=== PATIENT | female | born 1970 | race Caucasian/White ===

== ENCOUNTER → 2022-11-08 | Outpatient (CLI) | payer OTHER ==
[2022-11-09 10:05] LABS: ALT 20 U/L; AST 19 U/L; LDL Cholesterol,Calculated 53.8 mg/dL
== END | disposition home or self-care (01) ==
LOC: LABWHC1 08:20
PROVIDERS: ATTEND Internal Medicine Cardiovascular Disease
DX: E78.2 Mixed hyperlipidemia (principal)
CPT/HCPCS: 36415; 80061; 84450; 84460

== ENCOUNTER → 2022-11-15 | Outpatient (CLI) | payer OTHER | END | disposition home or self-care (01) | LOC: LABWHC1 08:01 | PROVIDERS: ATTEND Internal Medicine | DX: E11.65 Type 2 diabetes mellitus with hyperglycemia (principal) | CPT/HCPCS: 36415; 82043; 82570; 82947; 84681 ==

== ENCOUNTER → 2022-12-06 | Outpatient (CLI) | payer OTHER ==
[2022-12-06 13:30] LABS: HCT 44.1 % (37.2-46.3); MCH 29.2 pg (27.0-32.0); MCHC 31.7 d/dL (32.0-37.0); MCV 91.9 FL (80.0-97.0); Mean Platelet Volume 9.7 FL (9.5-12.2); NRBC Per 100 WBC 0 X 10*3/uL (0.00-0.01); Platelet Count 297 X 10*3/uL (140-440); RDW 13.2 % (11.5-14.5); WBC 12.94 X 10*3/uL (4.50-10.00)
[2022-12-06 13:36] LABS: Blood Urea Nitrogen 21.4 mg/dL (9.0-27.0); Carbon Dioxide 27.6 mmol/L (21.6-31.8); Chloride 106 mmol/L (96-109); Potassium 4.7 mmol/L (3.5-5.5); Sodium 142 mmol/L (135-145)
== END | disposition home or self-care (01) ==
LOC: LABPAT 08:13
PROVIDERS: ATTEND Orthopaedic Surgery
DX: Z01.812 Encounter for preprocedural laboratory examination (principal); I25.10 Atherosclerotic heart disease of native coronary artery without angina pectoris; M17.11 Unilateral primary osteoarthritis, right knee; Z22.322 Carrier or suspected carrier of Methicillin resistant Staphylococcus aureus
CPT/HCPCS: 36415; 80051; 82565; 84520; 85027; 87070

== ENCOUNTER 2022-12-11 05:43 | Day surgery (SDC) | payer OTHER ==
[2022-12-11] MEDS ORDERED: ALPRAZolam 0.25 MG TAB PO PRN (05:59)
[2022-12-11] MEDS ORDERED: ALPRAZolam 0.5 MG TAB PO PRN (05:59)
[2022-12-11] MEDS ORDERED: SODIUM CHLORIDE 0.9% 1,000 ML in EMPTY BAG 1 BAG IV SCH (05:59)
[2022-12-11] MEDS ORDERED: NITROGLYCERIN SL TABS 0.4 MG TAB SUBLINGUAL PRN (05:59)
[2022-12-11 06:21] VITALS: RESP 18; TEMP 98.2
[2022-12-11 06:24] LABS: Glucose,Whole Blood 292 mg/dL (70-110)
[2022-12-11 06:26] LABS: Basophils # (A) 0.1 k/uL (0-0.2); Basophils % (A) 0 %; Eosinophils # (A) 0.3 k/uL (0-0.7); Eosinophils % (A) 2 %; HCT 45.4 % (34.0-46.0); HGB 14.6 gm/dL (11.4-16.0); Lymphocytes # (A) 3.3 k/uL (1.0-4.8); Lymphocytes % (A) 24 %; MCHC 32.1 g/dL (31.0-37.0); MCV 90.2 fL (80.0-100.0); Mean Platelet Volume 7.6; Monocytes # (A) 0.6 k/uL (0-1.0); Monocytes % (A) 4 %; Neutrophils # (A) 9.5 k/uL (1.3-7.7); Neutrophils % (A) 68 %; Platelet Count 280 k/uL (150-450); RBC 5.04 m/uL (3.80-5.40); RDW 13.5 % (11.5-15.5); WBC 13.9 k/uL (3.8-10.6)
[2022-12-11] MEDS ORDERED: ASPIRIN 325 MG TAB PO ONE (07:00)
[2022-12-11] MEDS ORDERED: HEPARIN SODIUM,PORCINE 10,000 UNIT in SODIUM CHLORIDE 0.9% 1,000 ML IRRIGATION PRN (07:00)
[2022-12-11] MEDS ORDERED: HEPARIN SODIUM,PORCINE 2,500 UNIT in SODIUM CHLORIDE 0.9% 250 ML IRRIGATION PRN (07:00)
[2022-12-11] MEDS ORDERED: ATORVASTATIN 80 MG TAB PO ONE (07:00)
[2022-12-11] MEDS ORDERED: HEPARIN SODIUM 1,000 UN/ML (10ML VL) ONE (07:25)
[2022-12-11] MEDS ORDERED: fentaNYL (PF) 50 MCG/ML 2 ML AMP ONE (07:25)
[2022-12-11] MEDS ORDERED: INSULIN ASPART (NovoLOG) 100 UNIT/ML VIAL SQ SCH (07:30)
[2022-12-11] MEDS ORDERED: fentaNYL (PF) 50 MCG/ML 2 ML AMP IV ONE (07:42)
[2022-12-11] MEDS: MIDAZOLAM 2 MG/2 ML VIAL IV ONE ×2 (07:42→07:49)
[2022-12-11] MEDS ORDERED: LIDOCAINE 1% INJ 10MG/ML (5 ML VIAL-PF) SQ ONE (07:44)
[2022-12-11] MEDS ORDERED: VERAPAMIL SYRINGE (5 MG/10 ML) INTRAARTER ONE (07:46)
[2022-12-11] MEDS ORDERED: HEPARIN SODIUM 1,000 UN/ML (10ML VL) IV ONE (07:49)
[2022-12-11] MEDS ORDERED: IOPAMIDOL-370 100ML BTL INJ ONE (08:12)
--- NOTE | 2022-12-11 08:36 | LTR ---
To CONSUELO Cooley. Dear Shaw[place], I performed cardiac catheterization on Swati Becerril. A detailed catheterization note is enclosed for your records. In brief, the cardiac catheterization reveals a patent stent within the LAD with an area of narrowing involving the distal stent and the [place] LAD. Plan at this stage is to treat her with optimal medical therapy and let her proceed with the surgery. MMMATILDEL / GRETELN: [id number] /
--- NOTE | 2022-12-11 08:44 | CC ---
CARDIAC CATHETERIZATION REPORT INDICATION: Abnormal stress test. HISTORY: This is a 52-year-old lady with history of known coronary artery disease status post prior angioplasty with placement of LAD, presented to me for preop cardiac evaluation prior to knee surgery and had a stress test that showed evidence of prior anterior wall myocardial infarction with areas of shala-infarct ischemia involving the anterolateral wall and had ischemic cardiomyopathy with ejection fraction of 40%. Due to this, she was advised to undergo cardiac catheterization for further evaluation. The patient had been explained of risks, benefits, and alternatives. She understood and accepted. DESCRIPTION OF PROCEDURE: After obtaining informed consent, left heart catheterization and coronary angiogram were performed via the right radial artery using standard Latha catheters. The patient tolerated the procedure well without any obvious immediate complications. The patient received sedation. Total sedation time was TR band was used for hemostasis. Right radial artery access was obtained using Seldinger technique. Catheters and wires were floated into the ascending aorta under fluoroscopic guidance. The patient received verapamil and heparin per protocol. FINDINGS: 1. Hemodynamics: Left ventricular end-diastolic pressure is 14-16 mm. There is no significant gradient across the aortic valve. 2. Left ventriculogram: Left ventriculogram was not performed. ANGIOGRAPHIC DATA: Right coronary artery: Right coronary artery is a large dominant vessel that shows a long segment of narrowing involving the PLV branch. It is 80% to 90% stenosed. Left main coronary artery is a normal-sized vessel and is free of stenosis. It divides into left anterior runs into left anterior descending coronary artery and circumflex coronary artery. Circumflex coronary artery gives off large-caliber OM branch. Both the circ and the OM branch appear free of significant stenosis. LAD was previously stented in the proximal portion with long segment of stent. Stent itself appears patent. Just at the junction of the stent and the [place] LAD, there is an area of narrowing which seems to be around 40% to 50%. CONCLUSION: 1. 90% stenosis involving a long segment of the PLV branch which appears chronic. 2. Patent stent within the LAD with an area of restenosis involving the distal stent and the [place] LAD just past the stent. PLAN: We will manage the patient with optimal medical therapy with beta blockers, aspirin statin, and add MANUEL inhibitors and let her go through surgery. I am going to have Dr. Joseph review the angiographic data. MMODL / IJN: [id number] /
[2022-12-11] MEDS ORDERED: RX INFO: IV CONTRAST WAS GIVEN 1 EACH MISC MISCELLANE PRN (10:26)
[2022-12-11] MEDS ORDERED: SODIUM CHLORIDE 0.9% 1,000 ML IV SCH (10:30)
[2022-12-11 11:17] VITALS: BP 138/85; PULSE 81
== END 2022-12-11 12:00 | disposition home or self-care (01) ==
LOC: CATHCVL 05:43
PROVIDERS: ATTEND Internal Medicine Cardiovascular Disease
DX: I25.10 Atherosclerotic heart disease of native coronary artery without angina pectoris (principal); I25.5 Ischemic cardiomyopathy; I25.2 Old myocardial infarction; E11.9 Type 2 diabetes mellitus without complications; I10 Essential (primary) hypertension; E78.5 Hyperlipidemia, unspecified; F17.210 Nicotine dependence, cigarettes, uncomplicated; Z79.02 Long term (current) use of antithrombotics/antiplatelets; Z79.82 Long term (current) use of aspirin; Z79.899 Other long term (current) drug therapy; Z79.4 Long term (current) use of insulin; Z79.84 Long term (current) use of oral hypoglycemic drugs; Z79.85 Long-term (current) use of injectable non-insulin antidiabetic drugs
CPT/HCPCS: 93458; 85025; C1769; C1894; J2250; J2001; J3010; J1644; Q9967

== ENCOUNTER 2023-01-20 10:37 | Observation (INO) | payer OTHER ==
[2023-01-12 11:43] VITALS: BMI 29.7
--- NOTE | 2023-01-19 08:29 | P.HPOR ---
History of Present Illness H&P Date: 01/19/23 Chief Complaint: Right knee pain The patient is a 52-year-old female who presents with progressive right knee pain secondary to osteoarthrosis despite conservative measures including medications along with injections. She has a history of a knee arthroscopy. She has daily pain that limits her normal function and activities. Review of Systems As per HPI Past Medical History Past Medical History: Coronary Artery Disease (CAD), Diabetes Mellitus, Hyperlipidemia, Hypertension, Myocardial Infarction (IN), Osteoarthritis (OA) Additional Past Medical History / Comment(s): RLS Last Myocardial Infarction Date:: 2018 History of Any Multi-Drug Resistant Organisms: None Reported Past Surgical History: Heart Catheterization, Heart Catheterization With Stent, Orthopedic Surgery, Tonsillectomy, Tubal Ligation Additional Past Surgical History / Comment(s): RT KNEE SX, LEEP, D & C Past Anesthesia/Blood Transfusion Reactions: Previous Problems w/ Anesthesia Additional Past Anesthesia/Blood Transfusion Reaction / Comment(s): COMES OUT OF ANESTHESIA SLOWLY Date of Last Stent Placement:: 2017 Smoking Status: Current every day smoker - Past Family History Mother Family Medical History: No Reported History Medications and Allergies Home Medications Medication Instructions Recorded Confirmed Type Aspirin EC [Ecotrin Low Dose] 81 mg PO DAILY 12/04/22 01/12/23 History Atorvastatin Calcium [Lipitor] 80 mg PO HS 12/04/22 01/12/23 History Clopidogrel [Plavix] 75 mg PO DAILY 12/04/22 01/12/23 History Dulaglutide [Trulicity] 4.5 mg SQ SA 12/04/22 01/12/23 History Empagliflozin [Jardiance] 25 mg PO DAILY 12/04/22 01/12/23 History Escitalopram Oxalate [Lexapro] 20 mg PO DAILY 12/04/22 01/12/23 History Insulin Aspart Prot/Insuln Asp 18 units SQ AC-TID 12/04/22 01/12/23 History [Novolog MIX 70-30 Flexpen] Insulin Glargine,Hum.rec.anlog 20 unit SQ HS 12/04/22 01/12/23 History [Lantus Solostar Pen] Metoprolol Tartrate [Lopressor] 75 mg PO BID 12/04/22 01/12/23 History Pioglitazone HCl 30 mg PO DAILY 12/04/22 01/12/23 History hydroCHLOROthiazide 12.5 mg PO DAILY 12/04/22 01/12/23 History metFORMIN HCL 1,000 mg PO BID 12/04/22 01/12/23 History rOPINIRole HCL [Requip] 3 mg PO HS 12/04/22 01/12/23 History Losartan [Cozaar] 25 mg PO DAILY #90 tab 12/11/22 01/12/23 Rx Multivit/Folic Acid/Vit K1 1 each PO DAILY 01/12/23 01/12/23 History [One-A-Day Women's 50 Plus Tab] Pregabalin 100 mg PO BID 01/12/23 01/12/23 History traMADol HCL 50 mg PO Q6H PRN 01/12/23 01/12/23 History Allergies Allergy/AdvReac Type Severity Reaction Status Date / Time adhesive Allergy redness on Verified 01/12/23 11:21 skin, took skin off Physical Examination - Knee right Appearance: effusion Effusion grade: grade 3 Valgus alignment in stance: 5 degrees Tenderness with palpation: anterior, lateral Pain: throughout ROM Gait: limping ROM: extension: -15 degrees ROM: flexion: 120 degrees Crepitus with motion: Yes Strength: extension: 5/5 Strength: flexion: 5/5 Meniscal tests: lateral meniscal tests: positive, lateral joint line pain: posit ryan Results The patient is a well-developed well-nourished female, approximately 6 foot 1, 220 pounds of endomorphic habitus. HEENT exam is nonfocal, neck is supple. She has painless passive motion of the right hip. Straight leg raise is negative. She's tender about the lateral joint line of the right knee. She has valgus alignment. Collaterals are stable, Maria Del Rosario was negative, Ivan's is equivocal. Her distal neurovascular appears intact in the right lower extremity. - Diagnostic results Knee x-ray: image reviewed (3 views of the right knee obtained the office show severe lateral and patellofemoral compartment joint space narrowing.) Assessment and Plan Assessment: Right knee severe lateral and patellofemoral compartment osteoarthrosis History of heart disease on Plavix Plan: I talked to the patient length regarding her condition along with treatment options. At this point she is quite symptomatic because of her right knee osteoarthrosis despite previous conservative measures. After thorough discussion she opted to proceed with surgery. We'll plan to proceed with right total knee arthroplasty. We will reinstitute her anticoagulation postoperatively. Risks and benefits were discussed at length in layman's terms.
[~2023-01-20 10:37] MED LIST: ACETAMINOPHEN TAB 500 MG TAB PO PRN; MELOXICAM 7.5 MG TAB PO PRN; TRANEXAMIC 1,000 MG/100ML-NACL 1,000 MG in SALINE 1 100ML.BAG IVPB PRN
[2023-01-20] MEDS ORDERED: MIDAZOLAM 2 MG/2 ML VIAL IV PRN (10:57)
[2023-01-20] MEDS ORDERED: ONDANSETRON 4 MG/2 ML VIAL IVP ONE (10:57)
[2023-01-20] MEDS ORDERED: LACTATED RINGERS 1,000 ML IV SCH (10:57)
[2023-01-20] MEDS ORDERED: HYDROmorphone 0.5 MG/0.5 ML SYRINGE IVP PRN ×2 (10:57→15:01)
[2023-01-20] MEDS ORDERED: DEXAMETHASONE SOD PHOSPHATE 4 MG/ML 1 ML VIAL IV ONE (10:57)
[2023-01-20] MEDS ORDERED: LIDOCAINE 1% (10MG/ML) FOR IV START INTRADERMA PRN (10:57)
[2023-01-20 11:35] LABS: Glucose,Whole Blood 125 mg/dL (70-110)
[2023-01-20] MEDS ORDERED: fentaNYL (PF) 50 MCG/ML 2 ML AMP IVP ONE (12:01)
[2023-01-20] MEDS ORDERED: MIDAZOLAM 2 MG/2 ML VIAL ONE (13:12)
[2023-01-20] MEDS ORDERED: PROPOFOL 10 MG/ML 20 ML VIAL IV ONE (13:12)
[2023-01-20] MEDS ORDERED: fentaNYL (PF) 50 MCG/ML 2 ML AMP ONE (13:12)
[2023-01-20] MEDS ORDERED: ROPIVACAINE 5 MG/ML 30 ML VIAL ONE (13:12)
[2023-01-20] MEDS ORDERED: SODIUM CHLORIDE 0.9% (PF) 10 ML VIAL ONE (13:12)
[2023-01-20] MEDS ORDERED: TRANEXAMIC 1,000 MG/100ML-NACL PREMIX BAG ONE (13:12)
--- NOTE | 2023-01-20 13:17 | P.ANPRN ---
Procedure Note - Anesthesia - Nerve Block Performed Right Adductor Canal Time Out Performed: Yes Date of Procedure: 01/20/23 Procedure Start Time: 12:01 Procedure Stop Time: 12:09 Location of Patient: PreOp Indication: Acute Post-Operative Pain, Requested by Surgeon (Dr Argueta) Sedation Type: Sedate with meaningful contact maintained Preparation: Sterile Prep, Sterile Dressing Position: Supine Catheter: Indwelling Needle Types: Pajunk Needle Gauge: 21 Ultrasound used to visualize needle placement: Yes Ultrasound used to observe medication spread: Yes Injectate: 0.5% Ropivacaine (see comment for volume) (20cc) Blood Aspirated: No Pain Paresthesia on Injection Noted: No Resistance on Injection: Normal Image Stored and Saved: Yes Events: Uneventful and Well Tolerated
--- NOTE | 2023-01-20 13:19 | P.ANPRN ---
Procedure Note - Anesthesia - Nerve Block Performed Right iPack Time Out Performed: Yes Date of Procedure: 01/20/23 Procedure Start Time: 12:10 Procedure Stop Time: 12:15 Location of Patient: PreOp Indication: Acute Post-Operative Pain, Requested by Surgeon (DR Argueta) Sedation Type: Sedate with meaningful contact maintained Preparation: Sterile Prep Position: Supine Catheter: None Needle Types: Pajunk Needle Gauge: 21 Ultrasound used to visualize needle placement: Yes Ultrasound used to observe medication spread: Yes Injectate: 0.5% Ropivacaine (see comment for volume) (15cc +5cc PF Normal saline) Blood Aspirated: No Pain Paresthesia on Injection Noted: No Resistance on Injection: Normal Image Stored and Saved: Yes Events: Uneventful and Well Tolerated
[2023-01-20] MEDS ORDERED: HYDROcodone/APAP 5-325MG 1 EACH TAB PO PRN (15:01)
[2023-01-20] MEDS ORDERED: HYDROmorphone 1 MG/ML 1 ML SYRINGE IVP PRN (15:01)
[2023-01-20] MEDS ORDERED: MAGNESIUM HYDROXIDE 2,400 MG/30 ML CUP PO PRN (15:01)
[2023-01-20] MEDS ORDERED: NALOXONE 0.4 MG/ML 1 ML VIAL IV PRN (15:01)
[2023-01-20] MEDS ORDERED: LACTATED RINGERS 1,000 ML IV ONE (15:08)
--- NOTE | 2023-01-20 15:14 | P.OP ---
Date of Procedure: 01/20/23 Preoperative Diagnosis: Right knee severe lateral and patellofemoral compartment osteoarthrosis Postoperative Diagnosis: Same Procedure(s) Performed: Right total knee arthroplastycementedposterior stabilized Implants: Depuy Attune size 6 cemented femoral component, size 5 cemented tibial component, 9 mm articular surface, 32 mm cemented patellar component. This is a posterior stabilized implant. Anesthesia: regional, spinal Surgeon: Velasquez Argueta Ingredient Mixer #1: Anton Vidal Estimated Blood Loss (ml): 50 Pathology: other (bone fragments) Condition: stable Disposition: PACU Indications for Procedure: The patient's a 52-year-old female presents with progressive right knee pain secondary to osteoarthrosis despite conservative measures. A discussion of the risks and benefits operative intervention versus continued conservative measures was made with the patient. She opted to proceed. Specific risks of surgery to include infection, neurovascular injury, development of blood clots, fracture, possible component loosening/failure and possible need for subsequent procedures was discussed. Informed consent was obtained. Operative Findings: As below Description of Procedure: The patient was brought to the operating room, and after induction of spinal anesthesia the right lower extremity was prepped and draped in a normal fashion. The tourniquet was inflated to 270 mm marker. A longitudinal incision extending 3 finger breaths above the superior pole of patella extending to the medial aspect the tibial tubercle was then made. The skin and subcutaneous tissues were divided sharply. Electrocautery was used for hemostasis. A medial parapatellar arthrotomy was performed. The medial soft tissues to include the superficial and deep portions of the medial collateral ligament were elevated subperiosteally. The lateral collateral ligament and popliteus off the lateral femoral epicondyle with electrocautery to help with balancing. The patella was everted. A portion of the retropatellar fat pad was excised sharply. The anterior cruciate ligament was sacrificed. Blunt retractors were placed. A starting hole was made in the distal femur 1 cm anterior to the posterior cruciate ligament origin. An intramedullary femoral guide was then inserted planning on 5 valgus distal cut with 9 mm distal resection. The cutting block was pinned in place. The distal cut was then made. The posterior referencing sizing guide was utilized. I felt size 6 was most appropriate. 3 of external rotation was built into the system and verified off the trans-epicondylar axis and the posterior condyles. The cutting block was pinned in place. The anterior, posterior, and chamfer cuts then made. Bone fragments were removed. The intercondylar guide was placed and the notch cut was made with a sagittal saw. The bone block was removed in one fragment. The trial component was then placed. There is good anterior to posterior and medial to lateral fit. The distal peg holes were drilled. The trial component was removed. Attention was then paid towards preparing the proximal tibia. An extra medullary guide was utilized in line with the tibial shaft and second metatarsal distally. I planned on 2 mm resection from the lateral compartment. The cutting block was pinned in place. The proximal tibial cut was then made. The bone was removed in one fragment. The remnants of the medial and lateral menisci were excised at the capsular junction with electrocautery. The tibia sized most appropriately at size 5. The trial femoral and tibial components were placed along with a 9 mm articular surface. I was able to obtain full flexion and extension with internal and external rotation. After several flexion and extension cycles, the tibial rotation was marked with electrocautery line with the medial one third of the tibial tubercle. Attention was then paid towards preparing the patella. A patella reamer was utilized taking stem to 14 mm of bone stock. A good flush cut was made. The patella sized most appropriately 32 mm. The peg holes were drilled. The trial components placed. I had good patellofemoral tracking with no hands technique. The trial components were then removed. The tibia was prepared in the appropriate rotation with appropriate drill and keel punch. The posterior osteophytes were removed with a curved osteotome. The flexion and extension gaps were checked and felt to be symmetric at 9 mm. A trial components were then removed. The bony surfaces were prepared with pulsatile lavage and dried. The tibial component was then cemented place was fully seated. Excess cement was removed. The femoral component cemented place and was fully seated. Excess cement was removed. The trial 9 mm articular surface was placed and the knee was put in full extension. The patella component was cemented place. After the cement had sufficiently hardened, the knee was again taken through a range of motion. Again I was able to obtain full flexion and extension with varus and valgus stress. The trial 9 mm articular surface was removed and the final one inserted. This was fully seated. Care was taken to avoid any soft tissue interposition. Pulsatile lavage was again utilized. The medial parapatellar arthrotomy was closed with #2 Ethibond suture. The tourniquet was deflated with approximately 60 minutes total tourniquet time. Final hemostasis was obtained with the cautery. There was minimal bleeding therefore a deep drain was not placed. The subcutaneous tissues were reapproximated with interrupted 2-0 Vicryl sutures. The skin was reapproximated with 3-0 subcuticular strata fix suture. Skin tape and adhesive was applied. A sterile dressing was applied. The patient was awoken from sedation and transferred to recovery room in good condition. Blood loss was estimated at 50 mL. No complications were incurred. Sponge and needle counts were correct at the end of the case. Anton FAUSTIN assisted during the major components of this case to include exposure, bone resection, implantation, and closure.
[2023-01-20] MEDS ORDERED: ROPIVACAINE 1,100 MG, SODIUM CHLORIDE 0.9% 500 ML 330 ML, EMPTY PAIN BALL 1 EACH MISCELLANE PRN ×2 (15:19)
[2023-01-20 15:34] LABS: Glucose,Whole Blood 169 mg/dL (70-110)
--- NOTE | 2023-01-20 15:48 | XR ---
EXAMINATION TYPE: XR knee limited RT DATE OF EXAM: 01/20/2023 3:33 PM INDICATION: Patient age:Female; 52 years old; Reason for study: Evaluation for Postop abnormality and alignment; H. COMPARISON: Right knee radiograph 10/01/2022 TECHNIQUE: The Right knee(s) was examined in AP and crosstable lateral projections. FINDINGS: Postsurgical changes from total right knee arthroplasty with distal femoral and proximal tibial components. Hardware appears intact with appropriate alignment. There is associated soft tissu e gas and edema. No acute fracture or dislocation. IMPRESSION: Postsurgical changes from right total knee arthroplasty. Hardware appears intact with appropriate ali gnment.
[2023-01-20] MEDS: PREGABALIN 100 MG CAP PO SCH (20:15)
[2023-01-20 20:59] LABS: Glucose,Whole Blood 346 mg/dL (70-110)
[2023-01-20] MEDS ORDERED: SENNOSIDES-DOCUSATE SODIUM 1 EACH TAB PO SCH (21:00)
[2023-01-20] MEDS: NICOTINE 14MG/24HR PATCH TRANSDERM SCH (21:04)
[2023-01-20] MEDS ORDERED: INSULIN DETEMIR (LEVEMIR) 100 UNIT/ML SYR SQ SCH (22:15)
[2023-01-20] MEDS: INSULIN ASPART (NovoLOG) 100 UNIT/ML VIAL SQ SCH (22:51)
[2023-01-21] MEDS: HYDROcodone/APAP 7.5-325MG 1 EACH TAB PO PRN ×2 (01:34→08:36)
[2023-01-21 01:46] VITALS: PULSE 85; TEMP 98.8
[2023-01-21 06:15] LABS: Glucose,Whole Blood 88 mg/dL (70-110)
[2023-01-21] MEDS: INSULIN ASPART (NovoLOG) 100 UNIT/ML VIAL SQ SCH ×2 (06:31→12:03)
[2023-01-21] MEDS ORDERED: INSULN ASP PRT/INSULIN ASPART 100 UNIT/ML 10 ML VIAL SQ SCH (07:30)
[2023-01-21] MEDS ORDERED: INSULIN ASPART (NovoLOG) 100 UNIT/ML VIAL SQ SCH (07:30)
[2023-01-21 07:41] LABS: Basophils # (A) 0.1 k/uL (0-0.2); Basophils % (A) 1 %; Eosinophils # (A) 0.1 k/uL (0-0.7); Eosinophils % (A) 1 %; HCT 42.1 % (34.0-46.0); HGB 13.6 gm/dL (11.4-16.0); Lymphocytes # (A) 2.7 k/uL (1.0-4.8); Lymphocytes % (A) 23 %; MCHC 32.3 g/dL (31.0-37.0); MCV 92.8 fL (80.0-100.0); Mean Platelet Volume 7.9; Monocytes # (A) 0.9 k/uL (0-1.0); Monocytes % (A) 8 %; Neutrophils # (A) 7.7 k/uL (1.3-7.7); Neutrophils % (A) 66 %; Platelet Count 212 k/uL (150-450); RBC 4.54 m/uL (3.80-5.40); RDW 13.3 % (11.5-15.5); WBC 11.7 k/uL (3.8-10.6)
[2023-01-21 07:54] VITALS: BP 146/80; RESP 19
[2023-01-21] MEDS: NICOTINE 14MG/24HR PATCH TRANSDERM SCH (08:26)
[2023-01-21] MEDS: PREGABALIN 100 MG CAP PO SCH (08:26)
[2023-01-21] MEDS ORDERED: CLOPIDOGREL 75 MG TAB PO SCH (09:00)
--- NOTE | 2023-01-21 10:42 | P.DS ---
Providers Date of admission: 01/20/23 17:25 Expected date of discharge: 01/21/23 Attending physician: Velasquez Argueta Consults: 01/20/23 15:01 Consult Physician Routine Consulting Provider: Tee Melgar Consult Reason/Comments: medical management status post right total knee arthroplasty Do you want consulting provider notified?: Yes Primary care physician: Levon Lux [facility] Course: Date of admission: 01/20/2023 Date of discharge: 01/21/2023 Admission diagnosis: Right knee osteoarthritis Discharge diagnosis: Same Attending physician: Dr. Argueta Surgical procedures: Right total knee arthroplasty Brief history: Patient is a is 52-year-old female with a history of progressive primary right knee osteoarthritis. At this point patient has failed conservative treatment measures and has opted to proceed with a elective right total knee arthroplasty. Hospital course: Details of patient's surgery can be found in operative report. Patient tolerated the procedure well and was subsequently transported to orthopedic floor. Patient's orthopeidc and medical care was provided daily. Patient had daily laboratory tests performed for evaluation of overall blood counts. Patient had daily physical therapy to include strengthening range of motion as well as education with walker ambulation. Patient was treated with Plavix for their postoperative DVT prophylaxis during their inpatient stay. Patient was noted to have a relatively uneventful postoperative course. Patient reported satisfactory pain control with oral pain medications by postoperative day 1. Patient showed satisfactory progress with physical therapy. Patient moved steadily through the program and had no difficulty meeting the goals by postoperative day 1. Given patient's otherwise satisfactory course and having met physical therapy goals, plan is to discharge patient home with health services on postoperative day 1. Discharge condition/disposition: Patient will be discharged home with health services in stable condition. Discharge medications: Instructions are given on resumption of patient's normal daily medications per primary care recommendation, in addition patient will be prescribed Marceline; senna. Discharge instructions: 1. Wound care and infection precautions, keep incision dry and covered while showering, no lotions, creams, moisturizers. No soaking, tubs, pools, hottubs. Do not scrub over the incision. 2. Weight-bear as tolerated with walker / cane until follow-up. 3. Ice and elevate when necessary. Do not exceed 20 minutes per hour with ice pack. 4. Utilize compression sleeve until seen at first follow up appointment. 5. Visiting nursing care. 6. Home physical therapy including home CPM. 7. Pain meds and anticoagulants per prescription. 8. Pain medication has potential to cause constipation. Increase oral fluid and fiber intake. Contact primary care provider if you have not had a bowel movement within 48 hours after discharge 9. No anti-inflammatory medication until discussed at first post operative visit, this including Motrin, Aleve, Mobic, Diclofenac. 10. Follow up in office at 2 weeks postop with Danilo Davenport PA-C / Anton Vidal PA-C 11. Follow up with your primary care doctor 7-10 days after discharge. 12. Contact [facility] with any questions, . Assessment: Right knee osteoarthritis Procedures: Right total knee arthroplasty Patient Condition at Discharge: Good Plan - Discharge Summary Discharge Rx Participant: Yes New Discharge Prescriptions: No Action Clopidogrel [Plavix] 75 mg PO DAILY Aspirin EC [Ecotrin Low Dose] 81 mg PO DAILY Metoprolol Tartrate [Lopressor] 75 mg PO BID Dulaglutide [Trulicity] 4.5 mg SQ SA hydroCHLOROthiazide 12.5 mg PO DAILY Losartan [Cozaar] 25 mg PO DAILY #90 tab Escitalopram Oxalate [Lexapro] 20 mg PO DAILY Empagliflozin [Jardiance] 25 mg PO DAILY Pioglitazone HCl 30 mg PO DAILY metFORMIN HCL 1,000 mg PO BID rOPINIRole HCL [Requip] 3 mg PO HS Insulin Glargine,Hum.rec.anlog [Lantus Solostar Pen] 20 unit SQ HS Insulin Aspart Prot/Insuln Asp [Novolog MIX 70-30 Flexpen] 18 units SQ AC-TID Atorvastatin Calcium [Lipitor] 80 mg PO HS traMADol HCL 50 mg PO Q6H PRN PRN Reason: Pain Pregabalin 100 mg PO BID Multivit/Folic Acid/Vit K1 [One-A-Day Women's 50 Plus Tab] 1 each PO DAILY Discharge Medication List Aspirin EC [Ecotrin Low Dose] 81 mg PO DAILY 12/04/22 [History] Atorvastatin Calcium [Lipitor] 80 mg PO HS 12/04/22 [History] Clopidogrel [Plavix] 75 mg PO DAILY 12/04/22 [History] Dulaglutide [Trulicity] 4.5 mg SQ SA 12/04/22 [History] Empagliflozin [Jardiance] 25 mg PO DAILY 12/04/22 [History] Escitalopram Oxalate [Lexapro] 20 mg PO DAILY 12/04/22 [History] Insulin Aspart Prot/Insuln Asp [Novolog MIX 70-30 Flexpen] 18 units SQ AC-TID 12/04/22 [History] Insulin Glargine,Hum.rec.anlog [Lantus Solostar Pen] 20 unit SQ HS 12/04/22 [History] Metoprolol Tartrate [Lopressor] 75 mg PO BID 12/04/22 [History] Pioglitazone HCl 30 mg PO DAILY 12/04/22 [History] hydroCHLOROthiazide 12.5 mg PO DAILY 12/04/22 [History] metFORMIN HCL 1,000 mg PO BID 12/04/22 [History] rOPINIRole HCL [Requip] 3 mg PO HS 12/04/22 [History] Losartan [Cozaar] 25 mg PO DAILY #90 tab 12/11/22 [Rx] Multivit/Folic Acid/Vit K1 [One-A-Day Women's 50 Plus Tab] 1 each PO DAILY 01/12/23 [History] Pregabalin 100 mg PO BID 01/12/23 [History] traMADol HCL 50 mg PO Q6H PRN 01/12/23 [History] Follow up Appointment(s)/Referral(s): Anton Vidal, LIAT [PHYSICIAN CANDY PACKER] - 2 Weeks Patient Instructions/Handouts: *Surgery [facility] - On-Q Pain Pump Discharge Instructions, Knee Replacement (DC) Activity/Diet/Wound Care/Special Instructions: Orthopedic Discharge Instructions: 1. Wound care and infection precautions, keep incision dry and covered while showering, no lotions, creams, moisturizers. No soaking, pools, hot tubs. Do not scrub over incision. 2. Weight-bear as tolerated with walker / cane until follow-up. 3. Ice and elevate when necessary. Do not exceed 20 minutes per hour with ice pack. 4. Utilize compression sleeve until seen at first follow up appointment. 5. Pain meds and anticoagulants per prescription. 6. Pain medication has potential to cause constipation. Increase oral fluid and fiber intake. Contact primary care provider if you have not had a bowel movement within 48 hours after discharge. 7. No anti-inflammatory medication until discussed at first post operative visit, this including Motrin, Aleve, Mobic, Diclofenac. 8. Follow up in office at 2 weeks postop with Danilo Davenport PA-C / Anton Vidal PA-C 9. Follow up with your primary care doctor 7-10 days after discharge. 10. Contact [facility] with any questions, . Keep incision clean, dry, intact. While showering, cover fusion tape with Saran. Keep fusion tape on until follow-up appointment in office in 2 weeks. Discharge Disposition: HOME WITH HOME HEALTH SERVICES
[2023-01-21 11:27] LABS: Glucose,Whole Blood 151 mg/dL (70-110)
--- NOTE | 2023-01-21 11:46 | P.PN ---
Subjective Progress Note Date: 01/21/23 Principal diagnosis: Right knee osteoarthritis Patient was seen at bedside this morning sitting up in chair with legs elevated. Patient says she is doing well. Patient says she does have family at home that will help her out. Patient says she does need a walker for home. Patient says she has urinated several times since surgery yesterday. Patient says physical therapy was up earlier this morning and she walked down the gill and up-and-down status. Patient denies any other issues at this time. Patient says she does take Plavix at home. Patient denies chest pain, fever, shortness of breath, nausea, loss of bowel/bladder control. Objective - Vital Signs Vital signs: Vital Signs Temp 98.8 F 01/21/23 07:15 Pulse 85 01/21/23 07:15 Resp 19 01/21/23 07:15 BP 146/80 01/21/23 07:15 Pulse Ox 96 01/21/23 07:15 FiO2 Intake & Output 01/20/23 01/21/23 01/21/23 18:59 06:59 18:59 Intake Total 1350 790 50 Output Total 50 Balance 1300 790 50 Weight 102.6 kg Intake: IV 1350 240 Lactated Ringers 1,000 ml 240 @ 20 mls/hr IV .Q24H [facility] Rx#:[id number] Intake, IV Titration 50 50 Amount ceFAZolin 2 gm In Sodium 50 50 Chloride 0.9% 50 ml @ 100 mls/hr IVPB Q8H [facility] Rx#: [id number] Oral 500 Output: Estimated Blood Loss 50 Other: # Voids 1 - Exam Right knee: Incision is clean, dry, and intact. The exofin fusion tape is in good condition. There is minimal soft tissue swelling and ecchymosis surrounding the medial and lateral aspects of the incision. Calf is soft, no tenderness with palpation. Plantar flexion, dorsiflexion, EHL, FHL are intact. Sensory exam to light touch throughout the extremity is intact, dorsal pedis pulses 2+. - Labs CBC & Chem 7: 01/21/23 06:10 Labs: Abnormal Lab Results - Last 24 Hours (Table) 01/20/23 01/20/23 01/20/23 Range/Units 11:28 15:31 20:58 WBC (3.8-10.6) k/uL POC Glucose (mg/dL) 125 H 169 H 346 H (70-110) mg/dL 01/21/23 Range/Units 06:10 WBC 11.7 H (3.8-10.6) k/uL POC Glucose (mg/dL) (70-110) mg/dL Assessment and Plan Assessment: 1. Right knee osteoarthritis - Postop day #1 status post right total knee arthroplasty Plan: 1. Right knee osteoarthritis - right total knee arthroplasty performed yesterday, 01/20/2023. Patient stable at bedside this morning. Pre scription for walker signed. Pain medication as needed PT/OT daily. Discharge home today with health services 2. Appreciate medical management 3. Pain management - [place] 4. GI prophylaxis - senna 5. DVT prophylaxis - Plavix 6. PT/OT - weightbearing as tolerated with walker 7. Encourage incentive spirometer use 8. Discharge planning - discharge home today with health services Time with Patient: Less than 30
[2023-01-21] MEDS ORDERED: ESCITALOPRAM 20 MG TAB PO SCH (13:15)
--- NOTE | 2023-01-21 13:35 | P.CONS ---
History of Present Illness - Reason for Consult Consult date: 01/21/23 Medical management - History of Present Illness History of present illness; 52-year-old lady with past medical history significant for coronary disease, diabetes, hypertension presented to the ER for elective right knee arthroplasty. Patient has been having right knee pain for a long time and has been following up outpatient with orthopedics, or cognitive measures failed and patient was scheduled for right knee arthroplasty. Postoperatively medicine team was consulted for medical management REVIEW OF SYSTEMS: CONSTITUTIONAL: No fever, no malaise, no fatigue. HEENT: No recent visual problems or hearing problems. Denied any sore throat. CARDIOVASCULAR: No chest pain, orthopnea, PND, no palpitations, no syncope. PULMONARY: No shortness of breath, no cough, no hemoptysis. GASTROINTESTINAL: No diarrhea, no nausea, no vomiting, no abdominal pain. NEUROLOGICAL: No headaches, no weakness, no numbness. HEMATOLOGICAL: Denies any bleeding or petechiae. GENITOURINARY: Denies any burning micturition, frequency, or urgency. MUSCULOSKELETAL/RHEUMATOLOGICAL: Right knee pain ENDOCRINE: Denies any polyuria or polydipsia. The rest of the 14-point review of systems is negative. PHYSICAL EXAMINATION: GENERAL: The patient is alert and oriented x3, not in any acute distress. Well developed, well nourished. HEENT: Pupils are round and equally reacting to light. EOMI. No scleral icterus. No conjunctival pallor. Normocephalic, atraumatic. No pharyngeal erythema. No thyromegaly. CARDIOVASCULAR: S1 and S2 present. No murmurs, rubs, or gallops. PULMONARY: Chest is clear to auscultation, no wheezing or crackles. ABDOMEN: Soft, nontender, nondistended, normoactive bowel sounds. No palpable organomegaly. MUSCULOSKELETAL: Right knee surgical incision seen EXTREMITIES: No cyanosis, clubbing, or pedal edema. NEUROLOGICAL: Gross neurological examination did not reveal any focal deficits. SKIN: No rashes. Assessment and plan Right knee severe lateral and patellofemoral compartment osteoarthrosis status post right knee arthroplasty Hypertension Coronary artery disease Diabetes mellitus Monitor vital signs Monitor CBC Monitor CMP Continue pain management per orthopedics Continue DVT prophylaxis per orthopedics Resume home meds Labs and medication were reviewed.. Continue same treatment. Continue with symptomatic treatment. Resume home medication. Monitor labs and vitals. DVT and GI prophylaxis. Further recommendations as per clinical course of the patient Dictation was produced using [employer] dictation software. please excuse any grammatical, word or spelling errors. Past Medical History Past Medical History: Coronary Artery Disease (CAD), Diabetes Mellitus, Hyperlipidemia, Hypertension, Myocardial Infarction ([place]), Osteoarthritis (OA) Additional Past Medical History / Comment(s): RLS Last Myocardial Infarction Date:: 2017 History of Any Multi-Drug Resistant Organisms: None Reported Past Surgical History: Heart Catheterization, Heart Catheterization With Stent, Orthopedic Surgery, Tonsillectomy, Tubal Ligation Additional Past Surgical History / Comment(s): RT KNEE SX, LEEP, D & C, Rt TKR Past Anesthesia/Blood Transfusion Reactions: Previous Problems w/ Anesthesia Additional Past Anesthesia/Blood Transfusion Reaction / Comm: COMES OUT OF ANESTHESIA SLOWLY Date of Last Stent Placement:: 2017 Past Psychological History: Anxiety, Depression Smoking Status: Current every day smoker Past Alcohol Use History: None Reported Additional Past Alcohol Use History / Comment(s): 1/2 PPD FOR MANY YEARS-TRYING TO QUIT Past Drug Use History: None Reported - Past Family History Mother Family Medical History: Diabetes Mellitus Sister(s) Family Medical History: Diabetes Mellitus Medications and Allergies Home Medications Medication Instructions Recorded Confirmed Type Aspirin EC [Ecotrin Low Dose] 81 mg PO DAILY 12/04/22 01/20/23 History Atorvastatin Calcium [Lipitor] 80 mg PO HS 12/04/22 01/20/23 History Clopidogrel [Plavix] 75 mg PO DAILY 12/04/22 01/20/23 History Dulaglutide [Trulicity] 4.5 mg SQ 12/04/22 01/20/23 History Empagliflozin [Jardiance] 25 mg PO DAILY 12/04/22 01/20/23 History Escitalopram Oxalate [Lexapro] 20 mg PO DAILY 12/04/22 01/20/23 History Insulin Aspart Prot/Insuln Asp 18 units SQ AC-TID 12/04/22 01/20/23 History [Novolog MIX 70-30 Flexpen] Insulin Glargine,Hum.rec.anlog 20 unit SQ 12/04/22 01/20/23 History [Lantus Solostar Pen] Metoprolol Tartrate [Lopressor] 75 mg PO BID 12/04/22 01/20/23 History Pioglitazone HCl 30 mg PO DAILY 12/04/22 01/20/23 History hydroCHLOROthiazide 12.5 mg PO DAILY 12/04/22 01/20/23 History metFORMIN HCL 1,000 mg PO BID 12/04/22 01/20/23 History rOPINIRole HCL [Requip] 3 mg PO HS 12/04/22 01/20/23 History Losartan [Cozaar] 25 mg PO DAILY #90 tab 12/11/22 01/20/23 Rx Multivit/Folic Acid/Vit K1 1 each PO DAILY 01/12/23 01/20/23 History [One-A-Day Women's 50 Plus Tab] Pregabalin 100 mg PO BID 01/12/23 01/20/23 History traMADol HCL 50 mg PO Q6H PRN 01/12/23 01/20/23 History HYDROcodone/APAP 7.5-325MG [[place] 1 - 2 tab PO Q6HR PRN #36 tab 01/21/23 Rx 7.5-325] Sennosides/Docusate Sodium [Senna 1 each PO DAILY #20 cap 01/21/23 Rx Plus 8.6-50 mg Softgel] Allergies Allergy/AdvReac Type Severity Reaction Status Date / Time adhesive Allergy redness on Verified 01/20/23 11:05 skin, took skin off Physical Exam Vitals: Vital Signs Temp Pulse Pulse Resp BP Pulse Ox 01/21/23 07:15 98.8 F 85 19 146/80 96 01/21/23 01:45 98.8 F 85 127/82 96 01/20/23 20:00 98.4 F 95 17 111/72 95 01/20/23 17:00 89 16 148/79 99 01/20/23 16:45 88 16 126/75 97 01/20/23 16:30 87 16 126/76 96 01/20/23 16:15 84 16 142/80 97 01/20/23 16:00 82 16 144/81 99 01/20/23 15:45 83 16 145/81 100 01/20/23 15:25 81 16 152/85 100 01/20/23 15:10 97 F L 83 16 149/86 100 Intake and Output 01/20/23 01/21/23 01/21/23 22:59 06:59 14:59 Intake Total 300 790 50 Balance 300 790 50 Intake: IV 300 240 Lactated Ringers 1,000 ml 240 @ 20 mls/hr IV .Q24H [facility] Rx#:[id number] Intake, IV Titration 50 50 Amount ceFAZolin 2 gm In Sodium 50 50 Chloride 0.9% 50 ml @ 100 mls/hr IVPB Q8H [facility] Rx#: [id number] Oral 500 Other: # Voids 1 1 Weight 102.6 kg Results CBC & Chem 7: 01/21/23 06:10 Labs: Abnormal Lab Results - Last 24 Hours (Table) 01/20/23 01/20/23 01/21/23 Range/Units 15:31 20:58 06:10 WBC 11.7 H (3.8-10.6) k/uL POC Glucose (mg/dL) 169 H 346 H (70-110) mg/dL 01/21/23 Range/Units 11:25 WBC (3.8-10.6) k/uL POC Glucose (mg/dL) 151 H (70-110) mg/dL
[2023-01-21] MEDS ORDERED: PREGABALIN 100 MG CAP PO SCH (21:00)
[2023-01-21] MEDS ORDERED: METOPROLOL TARTRATE 50 MG TAB PO SCH (21:00)
[2023-01-21] MEDS ORDERED: ATORVASTATIN 80 MG TAB PO SCH (21:00)
[2023-01-22] MEDS ORDERED: LOSARTAN 25 MG TAB PO SCH (09:00)
[2023-01-22] MEDS ORDERED: hydroCHLOROthiazide 12.5 MG CAP PO SCH (09:00)
[2023-01-22] MEDS ORDERED: DAPAGLIFLOZIN PROPANEDIOL 10 MG TABLET PO SCH (09:00)
== END 2023-01-21 12:56 | disposition home health service (06) ==
LOC: OR 10:37 → 4SSUR 15:09 → OR 17:25 → 4SSUR 17:25
PROVIDERS: ADMIT Orthopaedic Surgery; ATTEND Orthopaedic Surgery
DX: M17.11 Unilateral primary osteoarthritis, right knee (principal); M25.761 Osteophyte, right knee; G89.18 Other acute postprocedural pain; E11.9 Type 2 diabetes mellitus without complications; I10 Essential (primary) hypertension; I25.10 Atherosclerotic heart disease of native coronary artery without angina pectoris; E78.5 Hyperlipidemia, unspecified; I25.2 Old myocardial infarction; F32.A Depression, unspecified; F41.9 Anxiety disorder, unspecified; G25.81 Restless legs syndrome; F17.200 Nicotine dependence, unspecified, uncomplicated; Z95.5 Presence of coronary angioplasty implant and graft; Z79.82 Long term (current) use of aspirin; Z79.02 Long term (current) use of antithrombotics/antiplatelets; Z79.84 Long term (current) use of oral hypoglycemic drugs; Z79.4 Long term (current) use of insulin; Z79.899 Other long term (current) drug therapy
CPT/HCPCS: 97161; 64999; 64448; 85025; 73560; 27447; G0378 ×2; C1713 ×2; C1776; C1751; S4990 ×2; J2250; J1100; J0690 ×2; J2405; J3010; J2795; J2704; J1170

== ENCOUNTER → 2023-03-18 | Outpatient (CLI) | payer OTHER ==
--- NOTE | 2023-03-18 18:11 | P.SLEEP ---
History of Present Illness DATE: 03/18/2023 CONSULTATION/NEW PATIENT EVALUATION HISTORY OF PRESENT ILLNESS/SLEEP-WAKE EVALUATION: 52-year-old lady had been evaluated in the sleep center for possible obstructive sleep apnea hypopnea syndrome. SLEEP SCHEDULE: Usually sleep schedule from 10 PM to 89 AM 7 days a week. FALLING ASLEEP: Patient has problems with falling asleep. DURING SLEEP: Patient snores and has witnessed episodes of stop breathing during the sleep. Patient wakes up from sleep 3 times with nocturia. Positive history of significant leg movements. No history of hypnogogical hallucinations, sleep paralysis, or cataplexy. DURING THE DAY/WAKE STATE: In the morning patient wake up tired, falling asleep during the day. [place] sleepiness scale is significantly increased to 14. Patient may take 2 naps during the day. PAST MEDICAL HISTORY: Hypertension, coronary artery disease, acid reflux, headaches, diabetes mellitus, depression, anxiety. PAST SURGICAL HISTORY: Right knee replacement in January 2023, tonsillectomy. MEDICATIONS: Clopidogrel 75 mg once a day, pregabalin 75 mg twice a day, metformin 1000 mg twice a day, tramadol, insulin, Trulicity, Actos, losartan 25 mg once a day. SOCIAL HISTORY: Positive history of smoking for about 35 pack years, alcohol consumption none. FAMILY HISTORY: Hypertension, heart problems, snoring, diabetes, restless legs. REVIEW OF SYSTEMS: Snoring, multiple awakenings from sleep with nocturia, sleepiness during the day. No fevers. No double vision. No recent chest pain. No shortness of breath. No abdominal pain. No bleeding episodes. No blood in urine. No seizure episodes. PHYSICAL EXAMINATION: GENERAL: A pleasant patient without any distress. VITAL SIGNS: BP 168/87 , HR 85 , RR 18 , weight 225 pounds, height 5 foot 11-7/8 inches, body mass index 30.7 . HEENT: PERRLA, EOMI. Evaluation of oropharynx showed tongue protrudes midline, low position of soft palate Mallampati 2, wide pillrs, short distance between soft palate and posterior pharyngeal wall. NECK: Supple. No JVD. Thyroid is not palpable. 16-3/4 inches in circumference. LUNGS: Clear to percussion and to auscultation. Good air exchange. No wheezing or rhonchi. HEART: S1, S2 regular. No murmurs, gallops or rubs. ABDOMEN: Soft and nontender. Bowel sounds are present. No organomegaly appreciated. EXTREMITIES: No clubbing or cyanosis. FRONT OFFICE ASSOCIATE: Awake, alert, and oriented x3. Cranial nerves 2 to 7 intact. There is no fasciculation or atrophy noted. No focal deficits observed. ASSESSMENT: 1. Snoring, witnessed episodes of stop breathing during the sleep, small oropharyngeal airspace, sleepiness with [place] Sleepiness Scale 14. Obstructive sleep apnea-hypopnea syndrome. 2. Hypertension. 3. Coronary artery disease, status post stent insertion. 4. Hyperlipidemia. 5 headaches. 6 . Acid reflux. 7. Diabetes mellitus. 8. History of depression. 9 . History of anxiety. 10. Status post right knee replacement in January 2023. PLAN: 1. Polysomnography for evaluation of patient's breathing during sleep. 2. Following plan after reading sleep study. 3. Preferable position during sleep on the side. 4. No driving if patient feels any sleepiness. Patient is aware of civil and criminal liability for unsafe driving. 5. Sleep hygiene with regular sleep time for at least 7.5-8 hours. 6. Watching and losing weight. Thank you very much for referring this patient for consultation. Sincerely, Rao Freeman MD, PhD, FAASM. Diplomat of [place] [employer], Sleep Medicine Board by [place] [employer] [place] [employer] Manager [facility] Past Medical History Past Medical History: Coronary Artery Disease (CAD), Diabetes Mellitus, Hyperlipidemia, Hypertension, Myocardial Infarction ([place]), Osteoarthritis (OA) Additional Past Medical History / Comment(s): scheduled for Total knee replacement 01/20/23 having procedure for a clearance from Dr Luevano. ? mild SD in 2018 noted in medical hx from [place]. back issues, discs. Last Myocardial Infarction Date:: 2018 History of Any Multi-Drug Resistant Organisms: None Reported Past Surgical History: Heart Catheterization With Stent, Tonsillectomy, Tubal Ligation Additional Past Surgical History / Comment(s): RT KNEE SX, LEEP, D & C, Rt TKR Past Anesthesia/Blood Transfusion Reactions: Previous Problems w/ Anesthesia Additional Past Anesthesia/Blood Transfusion Reaction / Comment(s): comes out slowly Date of Last Stent Placement:: 2018 Additional Past Alcohol Use History / Comment(s): 1/2ppd for a long time trying to quit - Past Family History Mother Family Medical History: Diabetes Mellitus Sister(s) Family Medical History: Diabetes Mellitus Medications and Allergies Home Medications Medication Instructions Recorded Confirmed Type Aspirin EC [Ecotrin Low Dose] 81 mg PO DAILY 12/04/22 01/20/23 History Atorvastatin Calcium [Lipitor] 80 mg PO HS 12/04/22 01/20/23 History Clopidogrel [Plavix] 75 mg PO DAILY 12/04/22 01/20/23 History Dulaglutide [Trulicity] 4.5 mg SQ SA 12/04/22 01/20/23 History Empagliflozin [Jardiance] 25 mg PO DAILY 12/04/22 01/20/23 History Escitalopram Oxalate [Lexapro] 20 mg PO DAILY 12/04/22 01/20/23 History Insulin Aspart Prot/Insuln Asp 18 units SQ AC-TID 12/04/22 01/20/23 History [Novolog MIX 70-30 Flexpen] Insulin Glargine,Hum.rec.anlog 20 unit SQ 12/04/22 01/20/23 History [Lantus Solostar Pen] Metoprolol Tartrate [Lopressor] 75 mg PO BID 12/04/22 01/20/23 History Pioglitazone HCl 30 mg PO DAILY 12/04/22 01/20/23 History hydroCHLOROthiazide 12.5 mg PO DAILY 12/04/22 01/20/23 History metFORMIN HCL 1,000 mg PO BID 12/04/22 01/20/23 History rOPINIRole HCL [Requip] 3 mg PO HS 12/04/22 01/20/23 History Losartan [Cozaar] 25 mg PO DAILY #90 tab 12/11/22 01/20/23 Rx Multivit/Folic Acid/Vit K1 1 each PO DAILY 01/12/23 01/20/23 History [One-A-Day Women's 50 Plus Tab] Pregabalin 100 mg PO BID 01/12/23 01/20/23 History traMADol HCL 50 mg PO Q6H PRN 01/12/23 01/20/23 History HYDROcodone/APAP 7.5-325MG [[place] 1 - 2 tab PO Q6HR PRN #36 tab 01/21/23 Rx 7.5-325] Sennosides/Docusate Sodium [Senna 1 each PO DAILY #20 cap 01/21/23 Rx Plus 8.6-50 mg Softgel] Allergies Allergy/AdvReac Type Severity Reaction Status Date / Time adhesive Allergy redness on Verified 01/20/23 11:05 skin, took skin off Sleep Note - Sleep Note Sleep Note: Temperature: Pulse Rate: Respiratory Rate: Blood Pressure: SpO2: Height: Weight: BMI: Neck Circumference:
== END ==
LOC: 3 N SLEEP 14:46
PROVIDERS: ATTEND Internal Medicine
DX: G47.33 Obstructive sleep apnea (adult) (pediatric) (principal); I10 Essential (primary) hypertension; I25.10 Atherosclerotic heart disease of native coronary artery without angina pectoris; E78.5 Hyperlipidemia, unspecified; R51.9 Headache, unspecified; K21.9 Gastro-esophageal reflux disease without esophagitis; E11.9 Type 2 diabetes mellitus without complications; F41.9 Anxiety disorder, unspecified; F17.210 Nicotine dependence, cigarettes, uncomplicated; F32.A Depression, unspecified; Z96.661 Presence of right artificial ankle joint; Z95.5 Presence of coronary angioplasty implant and graft; Z79.4 Long term (current) use of insulin; Z79.85 Long-term (current) use of injectable non-insulin antidiabetic drugs; Z79.84 Long term (current) use of oral hypoglycemic drugs; Z79.899 Other long term (current) drug therapy; Z91.048 Other nonmedicinal substance allergy status; Z79.02 Long term (current) use of antithrombotics/antiplatelets
CPT/HCPCS: 99211

== ENCOUNTER 2023-03-25 17:55 | Emergency (ER) | payer OTHER ==
[2023-03-25 18:19] VITALS: RESP 18; TEMP 99
--- NOTE | 2023-03-25 18:52 | ED ---
Fall HPI - General Chief Complaint: Fall Stated Complaint: fell right rib area pain Time Seen by Provider: 03/25/23 18:50 Source: patient, RN notes reviewed Mode of arrival: ambulatory - History of Present Illness Initial Comments: Patient is a 52-year-old female with right rib and right knee pain after fall 2 days ago. Patient has mild pain in her right knee which has improved significantly and her pain is mostly in her right ribs. Patient has a live rib pain with movement. No chest pain or shortness of breath. She did not hit her head or lose consciousness. - Related Data Home Medications Medication Instructions Recorded Confirmed Aspirin EC [Ecotrin Low Dose] 81 mg PO DAILY 12/04/22 01/20/23 Atorvastatin Calcium [Lipitor] 80 mg PO HS 12/04/22 01/20/23 Clopidogrel [Plavix] 75 mg PO DAILY 12/04/22 01/20/23 Dulaglutide [Trulicity] 4.5 mg SQ SA 12/04/22 01/20/23 Empagliflozin [Jardiance] 25 mg PO DAILY 12/04/22 01/20/23 Escitalopram Oxalate [Lexapro] 20 mg PO DAILY 12/04/22 01/20/23 Insulin Aspart Prot/Insuln Asp 18 units SQ AC-TID 12/04/22 01/20/23 [Novolog MIX 70-30 Flexpen] Insulin Glargine,Hum.rec.anlog 20 unit SQ HS 12/04/22 01/20/23 [Lantus Solostar Pen] Metoprolol Tartrate [Lopressor] 75 mg PO BID 12/04/22 01/20/23 Pioglitazone HCl 30 mg PO DAILY 12/04/22 01/20/23 hydroCHLOROthiazide 12.5 mg PO DAILY 12/04/22 01/20/23 metFORMIN HCL 1,000 mg PO BID 12/04/22 01/20/23 rOPINIRole HCL [Requip] 3 mg PO HS 12/04/22 01/20/23 Multivit/Folic Acid/Vit K1 1 each PO DAILY 01/12/23 01/20/23 [One-A-Day Women's 50 Plus Tab] Pregabalin 100 mg PO BID 01/12/23 01/20/23 traMADol HCL 50 mg PO Q6H PRN 01/12/23 01/20/23 Previous Rx's Medication Instructions Recorded Losartan [Cozaar] 25 mg PO DAILY #90 tab 12/11/22 HYDROcodone/APAP 7.5-325MG [Mason 1 - 2 tab PO Q6HR PRN #36 tab 01/21/23 7.5-325] Sennosides/Docusate Sodium [Senna 1 each PO DAILY #20 cap 01/21/23 Plus 8.6-50 mg Softgel] Acetaminophen Tab [Tylenol] 1,000 mg PO Q4H PRN #30 tab 03/25/23 Cyclobenzaprine [Flexeril] 5 mg PO BID #14 tablet 03/25/23 Lidocaine 5% Patch [Lidoderm 5% 1 patch TOPICAL DAILY PRN #7 patch 03/25/23 Patch] Allergies Allergy/AdvReac Type Severity Reaction Status Date / Time adhesive Allergy redness on Verified 03/25/23 18:18 skin, took skin off Review of Systems ROS Statement: Those systems with pertinent positive or pertinent negative responses have been documented in the HPI. ROS Other: All systems not noted in ROS Statement are negative. Past Medical History Past Medical History: Coronary Artery Disease (CAD), Diabetes Mellitus, Hyperlipidemia, Hypertension, Myocardial Infarction (UT), Osteoarthritis (OA) Additional Past Medical History / Comment(s): scheduled for Total knee replacement 01/20/23 having procedure for a clearance from Dr Luevano. ? mild UT in 2018 noted in medical hx from [place]. back issues, discs. Last Myocardial Infarction Date:: 2018 History of Any Multi-Drug Resistant Organisms: None Reported Past Surgical History: Heart Catheterization With Stent, Tonsillectomy, Tubal Ligation Additional Past Surgical History / Comment(s): RT KNEE SX, LEEP, D & C, Rt TKR Past Anesthesia/Blood Transfusion Reactions: Previous Problems w/ Anesthesia Additional Past Anesthesia/Blood Transfusion Reaction / Comment(s): comes out slowly Date of Last Stent Placement:: 2018 Past Psychological History: Anxiety, Depression Smoking Status: Current every day smoker Past Alcohol Use History: None Reported Past Drug Use History: None Reported - Past Family History Mother Family Medical History: Diabetes Mellitus Sister(s) Family Medical History: Diabetes Mellitus General Exam - General Exam Comments Initial Comments: Visual Physical Exam Vital signs reviewed General: Well-appearing, nontoxic, no acute distress. Head: Normocephalic, atraumatic Eyes: PERRLA, EOMI ENT: Airway patent Chest: Nonlabored breathing Skin: No visual rash, normal skin tone Neuro: Alert and oriented 3 Musculoskeletal: No gross abnormalities Limitations: no limitations General appearance: alert Head exam: Present: atraumatic, normocephalic, normal inspection Eye exam: Present: normal appearance, PERRL, EOMI. Absent: scleral icterus, conjunctival injection, periorbital swelling Respiratory exam: Present: normal lung sounds bilaterally, chest wall tenderness (Right lateral ribs). Absent: respiratory distress, wheezes, rales, rhonchi, stridor Cardiovascular Exam: Present: regular rate, normal rhythm, normal heart sounds. Absent: systolic murmur, diastolic murmur, rubs, gallop, clicks Right Upper Leg exam: Present: normal inspection, full ROM. Absent: tenderness, swelling Knee exam: Present: normal inspection, full ROM. Absent: tenderness, swelling Lower Leg exam: Present: normal inspection, full ROM. Absent: tenderness, swelling Neurovascular tendon exam: Present: no vascular compromise Gait: observed and normal Course Vital Signs 03/25/23 03/25/23 18:14 21:54 Temperature 99 F Pulse Rate 96 76 Respiratory 18 18 Rate Blood Pressure 126/68 134/80 O2 Sat by Pulse 97 96 Oximetry Medical Decision Making - Medical Decision Making I performed the QuickNote portion of this chart - Ailin Davenport PA-C Was pt. sent in by a medical professional or institution (RAMIN Peck, SAS DEVELOPER, urgent care, hospital, or custodial...) When possible be specific @ -No Did you speak to anyone other than the patient for history (EMS, parent, family, police, friend...)? What history was obtained from this source @ -No Did you review nursing and triage notes (agree or disagree)? Why? @ -I reviewed and agree with nursing and triage notes Were old charts reviewed (outside hosp., previous admission, EMS record, old EKG, old radiological studies, urgent care reports/EKG's, custodial records)? Report findings @ -No old charts were reviewed Differential Diagnosis (chest pain, altered mental status, abdominal pain women, abdominal pain men, vaginal bleeding, weakness, fever, dyspnea, syncope, headache, dizziness, GI bleed, back pain, seizure, CVA, palpatations, mental health)? @ -Rib fracture, rib contusion, rib dislocation EKG interpreted by me (3pts min.). @ -As above X-rays interpreted by me (1pt min.). @ -No acute fracture dislocation of the right knee and ribs CT interpreted by me (1pt min.). @ -None done U/S interpreted by me (1pt. min.). @ -None done What testing was considered but not performed or refused? (CT, X-rays, U/S, labs)? Why? @ -None What meds were considered but not given or refused? Why? @ -None Did you discuss the management of the patient with other professionals (professionals i.e. DrMaurilio, PA, SAS DEVELOPER, lab, RT, psych nurse, social and political studies professor, certified orthotist practice manager, teacher, correction officer head, caseworker protective services)? Give summary @ -No Was smoking cessation discussed for >3mins.? @ -No Was critical care preformed (if so, how long)? @ -No Were there social determinants of health that impacted care today? How? (Homelessness, low income, unemployed, alcoholism, drug addiction, transportation, low edu. Level, literacy, decrease access to med. care, care home, rehab)? @ -No Was there de-escalation of care discussed even if they declined (Discuss DNR or withdrawal of care, Hospice)? DNR status @ -No What co-morbidities impacted this encounter? (DM, HTN, Smoking, COPD, CAD, Can cer, CVA, ARF, Chemo, Hep., AIDS, mental health diagnosis, sleep apnea, morbid obesity)? @ -None Was patient admitted / discharged? Hospital course, mention meds given and route, prescriptions, significant lab abnormalities, going to OR and other pertinent info. @ -52-year-old presenting for right rib pain. Patient appears to be in signifi cant pain. X-ray interpreted by myself show no definitive fracture. Pain controlled patient given spirometer with instructions. She is discharged in stable medical condition with pain medication she will follow-up with radiologic electronic specialist Undiagnosed new problem with uncertain prognosis? @ -No Drug Therapy requiring intensive monitoring for toxicity (Heparin, Nitro, Insulin, Cardizem)? @ -No Were any procedures done? @ -No Diagnosis/symptom? @ -fall, rib pain right side Acute, or Chronic, or Acute on Chronic? @ -acute Uncomplicated (without systemic symptoms) or Complicated (systemic symptoms)? @ -uncomplicated Side effects of treatment? @ -No Exacerbation, Progression, or Severe Exacerbation? @ -No Poses a threat to life or bodily function? How? (Chest pain, [place], UT, pneumonia, PE, COPD, DKA, ARF, appy, cholecystitis, CVA, Diverticulitis, Homicidal, Suicidal, threat to staff... and all critical care pts) @ -No Dr. mason is my attending Disposition Clinical Impression: Fall, Rib pain on right side Disposition: HOME SELF-CARE Condition: Good Instructions (If sedation given, give patient instructions): Rib Contusion (ED) Additional Instructions: Alternate Tylenol and Motrin every 3-4 hours for pain. Safe Tylenol 3 for severe pain. Do not take Tylenol 3 and Tylenol together. Take Flexeril as needed this medication will especially help at night. Do not take Tylenol 3 and Flexeril together as they can cause drowsiness and breathing issues. Apply warm compresses lidocaine patches to injury. Follow-up with radiologic electronic specialist in 1-2 days. Return to the emergency department if you experience new, concerning, or worsening symptoms. Prescriptions: Cyclobenzaprine [Flexeril] 5 mg PO BID #14 tablet Lidocaine 5% Patch [Lidoderm 5% Patch] 1 patch TOPICAL DAILY PRN #7 patch PRN Reason: Pain Acetaminophen Tab [Tylenol] 1,000 mg PO Q4H PRN #30 tab PRN Reason: Pain Is patient prescribed a controlled substance at d/c from ED?: No Referrals: Levon Lux DO [Primary Care Provider] - 1-2 days Harvinder Holloway MD [Medical Doctor] - 1-2 days
--- NOTE | 2023-03-25 19:21 | XR ---
EXAMINATION TYPE: XR knee complete RT DATE OF EXAM: 03/25/2023 7:12 PM CLINICAL INDICATION:Female, 52 years old with history of fall; COMPARISON: 01/20/2023 TECHNIQUE: XR knee complete RT; examined in Frontal, lateral and oblique projections. FINDINGS: Status post total knee arthroplasty changes with hardware in appropriate alignment and in tact. No evidence of fracture. Atherosclerosis of the arterial vasculature. IMPRESSION: Status post total knee arthroplasty changes with hardware intact and appropriate alignment. No fractu res identified.
--- NOTE | 2023-03-25 19:22 | XR ---
EXAMINATION TYPE: XR ribs RT w pa chest xray DATE OF EXAM: 03/25/2023 7:13 PM CLINICAL INDICATION:Female, 52 years old with history of fall; [facility] COMPARISON: None TECHNIQUE: XR ribs RT w pa chest xray; Frontal and oblique views of the ribs with frontal chest radio graph. FINDINGS: The ribs have a normal appearance. No evidence of fracture. Overall, the lungs are clear. The cardiac silhouette is normal in size. The remaining osseous structures are intact. IMPRESSION: Somewhat limited exam due to overlapping soft tissues. No obvious displaced fracture visualized.
[2023-03-25] MEDS ORDERED: KETOROLAC 15 MG/ML 1 ML VIAL IM STA (21:25)
[2023-03-25] MEDS ORDERED: LIDOCAINE 5% PATCH TOPICAL STA (21:25)
[2023-03-25 22:16] VITALS: BP 134/80; PULSE 76
[2023-03-25] MEDS ORDERED: CYCLOBENZAPRINE 5 MG TAB PO STA (22:54)
[2023-03-25] MEDS ORDERED: ACET/COD 300 MG/30 MG STARTER PACK 6 TAB BTL PO STA (22:54)
== END 2023-03-25 23:40 | disposition home or self-care (01) ==
LOC: EC 17:55
DX: R07.81 Pleurodynia (principal); I25.10 Atherosclerotic heart disease of native coronary artery without angina pectoris; E11.9 Type 2 diabetes mellitus without complications; E78.5 Hyperlipidemia, unspecified; I10 Essential (primary) hypertension; I25.2 Old myocardial infarction; F17.200 Nicotine dependence, unspecified, uncomplicated; M19.90 Unspecified osteoarthritis, unspecified site; Z79.84 Long term (current) use of oral hypoglycemic drugs; Z79.1 Long term (current) use of non-steroidal anti-inflammatories (NSAID); Z79.899 Other long term (current) drug therapy; Z79.4 Long term (current) use of insulin; Z79.82 Long term (current) use of aspirin; Z79.01 Long term (current) use of anticoagulants; Z91.09 Other allergy status, other than to drugs and biological substances; Z86.59 Personal history of other mental and behavioral disorders; W18.30XA Fall on same level, unspecified, initial encounter
CPT/HCPCS: 71101; 73562; 99284; 96372; J1885

== ENCOUNTER → 2023-05-03 | Outpatient (CLI) | payer OTHER | LOC: 3 N SLEEP 19:16 | PROVIDERS: ATTEND Internal Medicine | DX: Z53.9 Procedure and treatment not carried out, unspecified reason (principal) ==

== ENCOUNTER 2023-05-13 19:37 | Outpatient (CLI) | payer OTHER ==
--- NOTE | 2023-05-21 12:18 | P.PCN ---
Description of Procedure: POLYSOMNOGRAPHY REPORT PROCEDURE(S)/DATE(S): Polysomnography 05/13/2023 CLINICAL: Patient has been seen in the sleep center for evaluation of obstructive sleep apnea-hypopnea syndrome. Please see my consultation. Sleep study has been done for evaluation of patient breathing during the sleep. PROCEDURE: The standard montage for clinical polysomnography included the electroencephalogram, the electrooculogram, the mentalis surface electromyography and Lead II cardiography. The respiratory battery consisted of measurements of nasal/buccal air flow, pressure transducer measurements from nose, thoracic and/or abdominal effort and intercostal surface electromyography. Video monitoring has been done to check for any parasomnia events. Nocturnal oxyhemoglobin saturations were obtained by finger oximetry. Step-chaidez titration with positive airway pressure was utilized to control the respiratory events, if necessary. RESULTS: During the diagnostic sleep study sleep efficiency was decreased to 79.8 %. Latency to sleep onset was significantly prolonged to 57.5 min. Sleep architecture showed stage NI was significantly increased to 22.3 %, Delta sleep was absent 0 %, REM sleep was decreased to 11.3 %. Respiratory channel showed 1 obstructive apneas, 0 mixed apneas, 2 central apneas, 31 hypopneas with lowest oxygen level 82%. Total apnea hypopnea index was 6.5. Heart rate was in the range between 78 and 82, average 80 by computer calculation. EMG showed 55.8 periodic limb movements per hour with 1.0 micro-arousals per hour. IMPRESSIONS: 1. Mild obstructive sleep apnea hypopnea syndrome. 2. Severe periodic limb movements have been documented. 3. Hypertension 4. Coronary artery disease Please see other impressions from consultation PLAN: 1. The patient will have AutoPAP treatment for correction of respiratory abnormalities during the sleep. 2. Please check iron profile including ferritin level, low level of iron may increase risk for periodic limb movements 3. Sleep hygiene with regular time in bed for at least 7-1/2 hours. 4. No driving if feeling sleepiness. 5. I will see patient for follow-up visit to evaluate clinical response on treatment with CPAP, check compliance with treatment and make any necessary adjustments related to mask fitting pressure and humidification. We will consider pharmacotherapy for prevention of periodic limb movements. Thank you very much for allowing me to participate in the management of your p atient. Sincerely, Rao Freeman MD, PhD, FAASM. Diplomat of [place] [employer], Sleep Medicine Board by [place] [employer] Developer of [facility]
== END 2023-05-14 06:10 | disposition home or self-care (01) ==
LOC: 3 N SLEEP 19:37
PROVIDERS: ATTEND Internal Medicine
DX: G47.33 Obstructive sleep apnea (adult) (pediatric) (principal); G47.61 Periodic limb movement disorder; I10 Essential (primary) hypertension; I25.10 Atherosclerotic heart disease of native coronary artery without angina pectoris; Z91.048 Other nonmedicinal substance allergy status; Z79.899 Other long term (current) drug therapy; Z79.82 Long term (current) use of aspirin
CPT/HCPCS: 95810

== ENCOUNTER 2023-07-03 05:39 | Day surgery (SDC) | payer OTHER ==
[2023-06-29 10:58] VITALS: BMI 29.8
--- NOTE | 2023-07-02 08:48 | P.HPOR ---
History of Present Illness H&P Date: 07/02/23 Chief Complaint: Right shoulder pain The patient's 53-year-old female who presents with persistent right shoulder pain for the past year. She is having pain with overhead activity and at night. She's tried medications in addition to injections and therapy with out signific ant relief. She has daily pain that limits her normal function and activities. Review of Systems As per HPI Past Medical History Past Medical History: Coronary Artery Disease (CAD), Diabetes Mellitus, Hyperlipidemia, Hypertension, Myocardial Infarction (AR), Osteoarthritis (OA), Sleep Apnea/CPAP/BIPAP Additional Past Medical History / Comment(s): Back issues, problems with discs in back. Varicose veins. CPAP use. Last Myocardial Infarction Date:: 2017 History of Any Multi-Drug Resistant Organisms: None Reported Past Surgical History: Heart Catheterization With Stent, Joint Replacement, Orthopedic Surgery, Tonsillectomy, Tubal Ligation Additional Past Surgical History / Comment(s): RIGHT KNEE SURGERY, LEEP PROCEDURE, D&C, RIGHT TOTAL KNEE REPLACEMENT, BILATERAL CATARACT SURGERY. Past Anesthesia/Blood Transfusion Reactions: Previous Problems w/ Anesthesia Additional Past Anesthesia/Blood Transfusion Reaction / Comment(s): "Comes out slowly." Date of Last Stent Placement:: 2018 Past Psychological History: Anxiety, Depression Smoking Status: Current every day smoker Past Alcohol Use History: None Reported Additional Past Alcohol Use History / Comment(s): Smoker of 1/2ppd, since age 15. Past Drug Use History: None Reported - Past Family History Mother Family Medical History: Diabetes Mellitus Sister(s) Family Medical History: Diabetes Mellitus Medications and Allergies Home Medications Medication Instructions Recorded Confirmed Type Aspirin EC [Ecotrin Low Dose] 81 mg PO DAILY 12/04/22 06/29/23 History Atorvastatin Calcium [Lipitor] 80 mg PO HS 12/04/22 06/29/23 History Empagliflozin [Jardiance] 25 mg PO DAILY 12/04/22 06/29/23 History Escitalopram Oxalate [Lexapro] 20 mg PO HS 12/04/22 06/29/23 History Metoprolol Tartrate [Lopressor] 75 mg PO BID 12/04/22 06/29/23 History Pioglitazone HCl 30 mg PO DAILY 12/04/22 06/29/23 History hydroCHLOROthiazide 12.5 mg PO DAILY 12/04/22 06/29/23 History metFORMIN HCL 1,000 mg PO BID 12/04/22 06/29/23 History rOPINIRole HCL [Requip] 3 mg PO HS 12/04/22 06/29/23 History Pregabalin 100 mg PO BID 01/12/23 06/29/23 History traMADol HCL 50 mg PO Q6H PRN 01/12/23 06/29/23 History Acetaminophen Tab [Tylenol] 1,000 mg PO Q4H PRN #30 tab 03/25/23 06/29/23 Rx Insulin NPL/Insulin Lispro 15 unit SQ TID-W/MEALS 06/29/23 06/29/23 History [humaLOG MIX 75-25 VIAL] Ketorolac Tromethamine/Pf [Acuvail 1 dropper LEFT EYE QID 06/29/23 06/29/23 History 0.45% Ophth Solution] Losartan [Cozaar] 25 mg PO QAM 06/29/23 06/29/23 History Tirzepatide [Mounjaro] 7.5 mg SQ SA 06/29/23 06/29/23 History Allergies Allergy/AdvReac Type Severity Reaction Status Date / Time adhesive Allergy redness on Verified 06/29/23 10:13 skin, took skin off Physical Examination - Shoulder right Tenderness with palpation: anterior, bicipital groove Pain: with abduction, with forward flexion ROM: forward flexion: 120 degrees ROM: internal rotation: lower lumbar ROM: external rotation: 60 degrees Crepitus with motion: Yes Tests: internal impingement tests: positive, external impingment tests: positive Results The patient is a well-developed well-nourished female approximately except for one, 222 pounds of endomorphic habitus. HEENT exam is nonfocal, neck is supple. She is tender about the right shoulder anterior subacromial space and bicipital groove. She has moderate subacromial crepitus. Motor strength is 5- /5 for abduction and external rotation. Lai, Neer sign, and speed tests are positive. Her distal neurovascular appears intact in the right upper extremity. - Diagnostic results Shoulder MRI: image reviewed (MRI of the right shoulder by report showed evidence of a partial-thickness rotator cuff tear along with a SLAP lesion and calcific rotator cuff tendinitis.) Assessment and Plan Assessment: Right shoulder impingement/partial thickness rotator cuff tear Right calcific rotator cuff tendinitis Right shoulder SLAP lesion click Plan: The patient at length regarding her condition along with treatment options. At this point she remains quite symptomatic despite extensive conservative measures. After a thorough discussion she opts to proceed with surgery. We'll plan to proceed with right shoulder arthroscopy with probable subacromial decompression, rotator cuff debridement versus repair, possible biceps tenotomy versus tenodesis. Risks and benefits were discussed at length in layman's terms. We will likely perform that as an outpatient procedure.
[2023-07-03] MEDS ORDERED: LACTATED RINGERS 1,000 ML IV SCH (06:24)
[2023-07-03] MEDS ORDERED: DEXAMETHASONE SOD PHOSPHATE 4 MG/ML 1 ML VIAL IV ONE (06:24)
[2023-07-03] MEDS ORDERED: ONDANSETRON 4 MG/2 ML VIAL IVP ONE (06:24)
[2023-07-03] MEDS ORDERED: LIDOCAINE 1% (10MG/ML) FOR IV START INTRADERMA PRN (06:24)
[2023-07-03] MEDS ORDERED: MIDAZOLAM 2 MG/2 ML VIAL IV PRN (07:00)
[2023-07-03] MEDS ORDERED: HYDROmorphone 0.5 MG/0.5 ML SYRINGE IVP PRN (07:00)
[2023-07-03 07:04] LABS: Glucose,Whole Blood 200 mg/dL (70-110)
[2023-07-03] MEDS ORDERED: fentaNYL (PF) 50 MCG/ML 2 ML AMP IVP ONE (07:06)
[2023-07-03 07:07] LABS: Basophils # (A) 0.1 k/uL (0-0.2); Basophils % (A) 1 %; Eosinophils # (A) 0.2 k/uL (0-0.7); Eosinophils % (A) 2 %; HCT 43.5 % (34.0-46.0); HGB 14.3 gm/dL (11.4-16.0); Lymphocytes # (A) 2.4 k/uL (1.0-4.8); Lymphocytes % (A) 18 %; MCH 30.2 pg (25.0-35.0); MCHC 32.9 g/dL (31.0-37.0); MCV 91.6 fL (80.0-100.0); Mean Platelet Volume 7.5; Monocytes # (A) 0.6 k/uL (0-1.0); Monocytes % (A) 4 %; Neutrophils % (A) 74 %; Platelet Count 257 k/uL (150-450); RBC 4.75 m/uL (3.80-5.40); RDW 14.2 % (11.5-15.5); WBC 13.4 k/uL (3.8-10.6)
[2023-07-03] MEDS ORDERED: INSULIN ASPART (NovoLOG) 100 UNIT/ML VIAL SQ ONE ×2 (07:24→10:02)
[2023-07-03] MEDS ORDERED: PHENYLEPHRINE-0.9% NACL SYG 1,000 MCG/10 ML SYRINGE ONE (07:25)
[2023-07-03] MEDS ORDERED: NEOSTIGMINE 1 MG/ML 10 ML VIAL ONE (07:25)
[2023-07-03] MEDS ORDERED: ROCURONIUM 10 MG/ML (5 ML VIAL) IV ONE (07:25)
[2023-07-03] MEDS ORDERED: LIDOCAINE 1% INJ 10MG/ML (20 ML MDV) ONE (07:25)
[2023-07-03] MEDS ORDERED: fentaNYL (PF) 50 MCG/ML 2 ML AMP ONE (07:25)
[2023-07-03] MEDS ORDERED: GLYCOPYRROLATE 0.2 MG/ML 2 ML VIAL ONE (07:25)
[2023-07-03] MEDS ORDERED: SUCCINYLCHOLINE CHLORIDE 200 MG/10 ML VIAL IV ONE (07:25)
[2023-07-03] MEDS ORDERED: ROPIVACAINE 5 MG/ML 30 ML VIAL ONE (07:25)
[2023-07-03] MEDS ORDERED: PROPOFOL 10 MG/ML 20 ML VIAL IV ONE (07:25)
[2023-07-03] MEDS ORDERED: EPINEPHrine (PF) 1 ML in SODIUM CHLORIDE 0.9% IRRIGATIO 3,000 ML IRRIGATION ONE ×8 (08:07)
--- NOTE | 2023-07-03 09:39 | P.OP ---
Date of Procedure: 07/03/23 Preoperative Diagnosis: Right shoulder impingement/SLAP tear Postoperative Diagnosis: Same in addition to 2 cm full-thickness rotator cuff tear Procedure(s) Performed: Right shoulder arthroscopic subacromial decompression/biceps tenodesis/rotator cuff repair Implants: Arthrex 4.75 mm swivel lock anchor 2, 5.5 mm lock anchor 1 Anesthesia: li CONNER Surgeon: Velasquez Argueta [employer] Guards #1: Marco Antonio Davenport Estimated Blood Loss (ml): 10 Pathology: none sent Condition: stable Disposition: PACU Indications for Procedure: The patient's 53-year-old female who presents with persistent/progressive right shoulder pain despite conservative measures. A discussion of the risks and benefits of operative intervention versus continued conservative measures was made with patient. She opted to proceed with surgery. Operative risks to include infection, neurovascular injury, development of blood clots, possible tendon rerupture, possible postoperative stiffness and need for subsequent procedures was discussed. Informed consent was obtained. Operative Findings: As below Description of Procedure: The patient was brought to the operating room, and after induction of general anesthesia was placed in a beachchair position. A preoperative interscalene block was placed for postoperative analgesia. I examined the right shoulder. There was no gross block to passive motion or gross glenohumeral instability. The right upper extremity was prepped and draped in normal fashion. The bony outlines the acromion, distal clavicle, and coracoid process were outlined with a skin marker. The glenohumeral joint was inflated with 50 mL of saline utilizing a spinal needle from posterior approach. A posterior portal was made through a 5 mm skin incision 1 cm medial and inferior to the posterior lateral border time. A blunt trocar was used to easily into the joint. Diagnostic arthroscopy was performed. An anterior portal was made just lateral to the coracoid process entering the joint above the subscapularis tendon. The subscapularis tendon appeared to be intact. Anterior labrum was intact. The inferior recess was inspected. The posterior labrum was intact. There was significant detachment of the superior labrum/biceps anchor. It was elected to proceed with biceps tenodesis at this point. The biceps was captured with a loop intact suture. Was then released from the superior labrum with electrocautery. Tenodesis was performed in the bicipital groove just above the subscapularis tendon. A 4.75 mm swivel lock anchor was placed with good purchase. On inspection the rotator cuff, a full-thickness tear involving the supraspinatus was noted without significant retraction. The arthroscope was placed into the subacromial space. A lateral portal was made 2 centimeters inferior to the anterior lateral border of the acromion. The rotator cuff was then mobilized with a traction suture. This was then easily brought back to the greater tuberosity. The soft tissue on the undersurface of the acromion was debrided with a motorized shaver and electrocautery clearly defining the anterior medial and lateral borders as well as the distal clavicle. An anterior inferior acromioplasty was performed with a motorized david starting anterolateral, then extending this posteriorly, then extending this medially. I converted to a flat acromion and this was verified in the posterior and lateral viewing portals. The greater tuberosity was lightly decorticating with a shaver down to a bleeding bony surface. An accessory superior lateral portals made just off the lateral edge of the acromion for anchor placement. A 4.75 mm anchor preloaded with #2 fiber tape were placed. Good purchase was obtained. These fiber tapes were then passed the rotator cuff with a scorpion suture passer. A fiber link was placed for additional fixation. A lateral 5.5 mm swivel lock anchor was placed with good purchase. Final arthroscopic view showed adequate compression at the footprint. The arthroscope was then removed. The portals were closed with simple 3-0 nylon sutures. A sterile dressing was applied in addition to a sling. The patient was then awoken from general anesthesia and transferred to recovery room in good condition. Blood loss was estimated at 10 mL. No complications were incurred. Sponge and needle counts were correct in the case. Danilo FAUSTIN assisted and the major components of the case to include arm positioning, anchor placement, and rotator cuff repair.
[2023-07-03] MEDS ORDERED: LACTATED RINGERS 1,000 ML IV ONE (09:41)
[2023-07-03 09:55] LABS: Glucose,Whole Blood 224 mg/dL (70-110)
[2023-07-03 10:01] VITALS: TEMP 96.8
[2023-07-03 10:56] LABS: Glucose,Whole Blood 207 mg/dL (70-110)
--- NOTE | 2023-07-03 11:10 | P.ANPRN ---
Procedure Note - Anesthesia - Nerve Block Performed Right Interscalene Single Time Out Performed: Yes (0705) Date of Procedure: 07/03/23 Procedure Start Time: 07:06 Procedure Stop Time: 07:12 Location of Patient: PreOp Indication: Acute Post-Operative Pain, Requested by Surgeon Specifically requested for management of pain by : Velasquez Argueta Sedation Type: Sedate with meaningful contact maintained Preparation: Sterile Prep Position: Supine Catheter: None Needle Types: Pajunk Needle Gauge: 21 Ultrasound used to visualize needle placement: Yes Ultrasound used to observe medication spread: Yes Injectate: 0.5% Ropivacaine (see comment for volume) (30cc) Blood Aspirated: No Pain Paresthesia on Injection Noted: No Resistance on Injection: Normal Image Stored and Saved: Yes Events: Uneventful and Well Tolerated
[2023-07-03 11:20] VITALS: BP 115/62; PULSE 85; RESP 18
== END 2023-07-03 11:34 | disposition home or self-care (01) ==
LOC: OR 05:39
PROVIDERS: ATTEND Orthopaedic Surgery
DX: S46.011A Strain of muscle(s) and tendon(s) of the rotator cuff of right shoulder, initial encounter (principal); S43.431A Superior glenoid labrum lesion of right shoulder, initial encounter; M75.41 Impingement syndrome of right shoulder; G89.18 Other acute postprocedural pain; I25.10 Atherosclerotic heart disease of native coronary artery without angina pectoris; E11.9 Type 2 diabetes mellitus without complications; E78.5 Hyperlipidemia, unspecified; I10 Essential (primary) hypertension; I25.2 Old myocardial infarction; M19.90 Unspecified osteoarthritis, unspecified site; G47.33 Obstructive sleep apnea (adult) (pediatric); I83.90 Asymptomatic varicose veins of unspecified lower extremity; F41.9 Anxiety disorder, unspecified; F32.A Depression, unspecified; F17.210 Nicotine dependence, cigarettes, uncomplicated; K21.9 Gastro-esophageal reflux disease without esophagitis; Z96.651 Presence of right artificial knee joint; Z98.51 Tubal ligation status; Z98.42 Cataract extraction status, left eye; Z98.41 Cataract extraction status, right eye; Z98.890 Other specified postprocedural states; Z83.3 Family history of diabetes mellitus; Z79.82 Long term (current) use of aspirin; Z79.84 Long term (current) use of oral hypoglycemic drugs; Z79.4 Long term (current) use of insulin; Z91.048 Other nonmedicinal substance allergy status; X58.XXXA Exposure to other specified factors, initial encounter
CPT/HCPCS: 64415; 85025; 29827; 29828; 29826; C1713 ×4; C1894; J2250; J1100; J0690; J2405; J0171; J3010; J1170

== ENCOUNTER → 2023-08-20 | Outpatient (CLI) | payer OTHER ==
--- NOTE | 2023-09-01 10:42 | MM ---
Reason for Exam: Screening (asymptomatic). Last mammogram was performed 6 year(s) and 10 month(s) ago. Patient History: Menarche at age 11. First Full-Term at age 37. Late child-bearing (after 30). Last menstrual period: Risk Values: Sima 5 year model risk: 1.6%. NCI Lifetime model risk: 11.2%. Prior Study Comparison: 10/23/2016 Bilateral Screening Mammogram, [facility]. 10/29/2016 Right Diagnostic Mammogram, [facility]. Tissue Density: The breasts are heterogeneously dense, which may obscure small masses. Findings: Analyzed By CAD. There is no suspicious group of microcalcifications or new suspicious mass in either breast. 9 calcifications. There is an area of asymmetric nodular density in the subareolar portion of bilateral breast. Benign calcification seen. Overall Assessment: Incomplete: need additional imaging evaluation, BI-RAD 0 Management: Diagnostic Mammogram of both breasts. . Patient should continue monthly self-breast exams. A clinical breast exam by your physician is recommended on an annual basis. This exam should not preclude additional follow-up of suspicious palpable abnormalities. Note on Sima scores and lifetime risk: 1. A Sima score greater than 3% is considered moderate risk. If this is the case, consider specialist referral to assess eligibility for a risk reducing agent. 2. If overall lifetime risk for the development of breast cancer is 20% or higher, the patient may qualify for future screening with alternating mammogram and breast MRI. Electronically signed and approved by: Bg Singh M.D. Radiologis
== END | disposition home or self-care (01) ==
LOC: RADMAMWWP 10:12
PROVIDERS: ATTEND Family Medicine
DX: Z12.31 Encounter for screening mammogram for malignant neoplasm of breast (principal)
CPT/HCPCS: 77067

== ENCOUNTER → 2023-09-08 | Outpatient (CLI) | payer OTHER ==
--- NOTE | 2023-09-08 14:49 | MM ---
Reason for Exam: Additional evaluation requested from abnormal screening. Last screening mammogram was performed less than 1 month ago. Patient History: Menarche at age 11. First Full-Term at age 37. Late child-bearing (after 30). Risk Values: Sima 5 year model risk: 1.6%. NCI Lifetime model risk: 11.2%. Prior Study Comparison: 10/29/2016 Right Diagnostic Mammogram, [facility]. 08/20/2023 Bilateral MG screening mammo w CAD, [facility]. Tissue Density: The breasts are heterogeneously dense, which may obscure small masses. Findings: Analyzed By CAD. No persistent nodularity seen within either breast. Mildly prominent retroareolar ducts seen. No evidence for distortion or suspicious clustered microcalcifications. Overall Assessment: Benign, BI-RAD 2 Management: Screening Mammogram of both breasts in 1 year. . Results were given to the patient verbally at the time of exam. Patient should continue monthly self-breast exams. A clinical breast exam by your physician is recommended on an annual basis. This exam should not preclude additional follow-up of suspicious palpable abnormalities. Note on Sima scores and lifetime risk: 1. A Sima score greater than 3% is considered moderate risk. If this is the case, consider specialist referral to assess eligibility for a risk reducing agent. 2. If overall lifetime risk for the development of breast cancer is 20% or higher, the patient may qualify for future screening with alternating mammogram and breast MRI. Electronically signed and approved by: Geo Gaona M.D. Radiologis
== END | disposition home or self-care (01) ==
LOC: RADMAMWWP 13:56
PROVIDERS: ATTEND Family Medicine
DX: R92.333 Mammographic heterogeneous density, bilateral breasts (principal)
CPT/HCPCS: 77066; G0279; 77062

== ENCOUNTER → 2024-02-12 | Outpatient (CLI) | payer OTHER ==
[2024-02-12 17:20] LABS: ALT 21 U/L (8-44); AST 17 U/L (13-35); Chol/HDL Ratio 3.71 Ratio
== END | disposition home or self-care (01) ==
LOC: LABWHC1 08:52
PROVIDERS: ATTEND Internal Medicine Cardiovascular Disease
DX: E78.2 Mixed hyperlipidemia (principal)
CPT/HCPCS: 36415; 80061; 84450; 84460

== ENCOUNTER → 2024-03-09 | Outpatient (CLI) | payer OTHER ==
[2024-03-09 11:02] LABS: Basophils % (A) 0.7 %; Eosinophils # (A) 0.28 X 10*3/uL (0.04-0.35); HCT 44.5 % (37.2-46.3); HGB 14.1 g/dL (12.0-15.0); Lymphocytes # (A) 3.45 X 10*3/uL (0.90-5.00); Lymphocytes % (A) 25.2 %; MCH 29.6 pg (27.0-32.0); MCHC 31.7 g/dL (32.0-37.0); MCV 93.5 FL (80.0-97.0); Mean Platelet Volume 10.4 FL (9.5-12.2); Monocytes % (A) 6.6 %; NRBC Per 100 WBC 0 X 10*3/uL (0.00-0.01); Neutrophils # (A) 8.85 X 10*3/uL (1.80-7.70); Neutrophils % (A) 64.8 %; Platelet Count 312 X 10*3/uL (140-440); RBC 4.76 X 10*6/uL (4.10-5.20); RDW 13.8 % (11.5-14.5); WBC 13.68 X 10*3/uL (4.50-10.00)
[2024-03-09 11:15] LABS: ALT 13 U/L (8-44); AST 14 U/L (13-35); Albumin 4.1 g/dL (3.8-4.9); Albumin/Globulin Ratio 1.78 Ratio (1.60-3.17); Alkaline Phosphatase 63 U/L (41-126); BUN/Creat Ratio 35.29 Ratio (12.00-20.00); Bilirubin, Conjugated <0.20 mg/dL (0.20-0.40); Bilirubin,Unconjugated >0.10 mg/dL (0.20-1.00); Blood Urea Nitrogen 24.7 mg/dL (9.0-27.0); Calcium 9.3 mg/dL (8.7-10.3); Carbon Dioxide 27.8 mmol/L (21.6-31.8); Chloride 107 mmol/L (96-109); Chol/HDL Ratio 5.33 Ratio; Globulin 2.3 g/dL (1.6-3.3); Glucose 163 mg/dL (70-110); LDL Cholesterol,Calculated 113.9 mg/dL (0.0-131.0); Potassium 4.3 mmol/L (3.5-5.5); Sodium 145 mmol/L (135-145); Total Bilirubin 0.3 mg/dL (0.3-1.2); Total Protein 6.4 g/dL (6.2-8.2)
== END | disposition home or self-care (01) ==
LOC: LABWHC1 07:21
PROVIDERS: ATTEND Family Medicine
DX: I25.10 Atherosclerotic heart disease of native coronary artery without angina pectoris (principal)
CPT/HCPCS: 36415; 80048; 80061; 80076; 85025

== ENCOUNTER → 2024-04-29 | Outpatient (CLI) | payer OTHER ==
[2024-04-29 15:28] LABS: ALT 20 U/L (8-44); AST 18 U/L (13-35); Alkaline Phosphatase 57 U/L (41-126); BUN/Creat Ratio 29.14 Ratio (12.00-20.00); Blood Urea Nitrogen 20.4 mg/dL (9.0-27.0); Calcium 9.4 mg/dL (8.7-10.3); Carbon Dioxide 26.7 mmol/L (21.6-31.8); Chloride 106 mmol/L (96-109); Chol/HDL Ratio 3.78 Ratio; Globulin 2.1 g/dL (1.6-3.3); Glucose 216 mg/dL (70-110); LDL Cholesterol,Calculated 70.6 mg/dL (0.0-131.0); Potassium 4.3 mmol/L (3.5-5.5); Sodium 145 mmol/L (135-145); Total Bilirubin 0.3 mg/dL (0.3-1.2); Total Protein 6.1 g/dL (6.2-8.2)
== END | disposition home or self-care (01) ==
LOC: LABWHC1 07:32
PROVIDERS: ATTEND Internal Medicine
DX: E11.65 Type 2 diabetes mellitus with hyperglycemia (principal); Z79.4 Long term (current) use of insulin
CPT/HCPCS: 36415; 80053; 80061; 82043; 82570; 83036